=== PATIENT | female | born 1960 | race Caucasian/White ===

== ENCOUNTER → 2016-07-25 | Outpatient (CLI) | payer MEDICARE, OTHER ==
--- NOTE | 2016-07-26 11:12 | MM ---
Reason for exam: screening (asymptomatic). Last mammogram was performed 2 years and 1 month ago. History: Patient is postmenopausal. Took hormonal contraceptives beginning at age 23. Physical Findings: A clinical breast exam by your physician is recommended on an annual basis and results should be correlated with mammographic findings. MG Screening Mammo w CAD Bilateral CC and MLO view(s) were taken. Prior study comparison: July 04, 2014, bilateral MG screening mammo w CAD. January 09, 2013, bilateral digital screening mammo w/CAD. January 21, 2011, bilateral digital screening mammo w/CAD. There are scattered fibroglandular densities. No significant changes when compared with prior studies. ASSESSMENT: Benign, BI-RAD 2 RECOMMENDATION: Routine screening mammogram of both breasts in 1 year.
== END | disposition home or self-care (01) ==
LOC: RADMAMWWP 16:36
PROVIDERS: ATTEND Obstetrics & Gynecology
DX: Z12.31 Encounter for screening mammogram for malignant neoplasm of breast (principal)

== ENCOUNTER 2016-09-13 18:39 | Emergency (ER) | payer MEDICARE, OTHER ==
[2016-09-13] MEDS ORDERED: SODIUM CHLORIDE 0.9% 1,000 ML IV STA (19:07)
[2016-09-13] MEDS ORDERED: ONDANSETRON 4 MG/2 ML VIAL IVP STA (19:08)
--- NOTE | 2016-09-13 19:10 | ED ---
General Adult HPI - General Chief complaint: Nausea/Vomiting/Diarrhea Stated complaint: SOB, Vomiting Time Seen by Provider: 09/13/16 18:57 Source: patient, RN notes reviewed, old records reviewed Mode of arrival: ambulatory Limitations: no limitations - History of Present Illness Initial comments: 56-year-old female presents to the emergency Department chief complaint of an episode of shortness of breath and vomiting. 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 She states that she pulled over and got something to eat and drink. She reports that after she vomited. She states that she had a stress test done approximately month ago which was normal. She denies any specific chest pain or abdominal pain. She just reports that she feels somewhat "lightheaded and off" and still feels somewhat short of breath. She is a nonsmoker. Denies any history of blood clots or cardiac history. She reports that she has a surgical history including tubal legation, cholecystectomy, and orthopedic surgeries and varicose and surgeries. Patient also has a history of fibromyalgia. - Related Data Home Medications Medication Instructions Recorded Confirmed Biotin 5 mg PO DAILY 09/13/16 09/13/16 HYDROcodone/APAP 5-325MG [[place] 1 tab PO Q6HR PRN 09/13/16 09/13/16 5-325] Hydrochlorothiazide [Hydrodiuril] 25 mg PO BID 09/13/16 09/13/16 Ibuprofen [Motrin] 800 mg PO BID PRN 09/13/16 09/13/16 Latanoprost [Xalatan 0.005%] 1 drop BOTH EYES HS 09/13/16 09/13/16 Lisinopril [Zestril] 20 mg PO DAILY 09/13/16 09/13/16 Magnesium Oxide [Mag-Ox] 400 mg PO BID 09/13/16 09/13/16 Methocarbamol [Robaxin-750] 750 mg PO BID PRN 09/13/16 09/13/16 Multivit with Calcium,Iron,Min 1 tab PO DAILY 09/13/16 09/13/16 [Women's Multivitamin] Pregabalin [Lyrica] 75 mg PO TID PRN 09/13/16 09/13/16 traMADol HCL [Ultram] 50 mg PO BID PRN 09/13/16 09/13/16 Previous Rx's Medication Instructions Recorded Potassium Chloride ER [K-Dur 20] 20 meq PO DAILY #7 tab 12/31/13 Allergies Allergy/AdvReac Type Severity Reaction Status Date / Time codeine AdvReac Nausea & Verified 09/13/16 19:23 Vomiting Review of Systems ROS Statement: Those systems with pertinent positive or pertinent negative responses have been documented in the HPI. ROS Other: All systems not noted in ROS Statement are negative. Past Medical History Past Medical History: Hypertension, Rheumatoid Arthritis (RA) History of Any Multi-Drug Resistant Organisms: None Reported Past Surgical History: Cholecystectomy, Tubal Ligation Additional Past Surgical History / Comment(s): jaw, carpal tunnel release Past Psychological History: No Psychological Hx Reported Smoking Status: Never smoker Past Alcohol Use History: None Reported Past Drug Use History: None Reported General Exam - General Exam Comments Initial Comments: This is a well-appearing 48-year-old female. Patient is on appear to be in any acute distress. Limitations: no limitations General appearance: alert, in no apparent distress Head exam: Present: atraumatic, normocephalic, normal inspection Eye exam: Present: normal appearance, PERRL, EOMI. Absent: scleral icterus, conjunctival injection, periorbital swelling ENT exam: Present: normal exam, mucous membranes moist Neck exam: Present: normal inspection. Absent: tenderness, meningismus, lymphadenopathy Respiratory exam: Present: normal lung sounds bilaterally. Absent: respiratory distress, wheezes, rales, rhonchi, stridor Cardiovascular Exam: Present: regular rate, normal rhythm, normal heart sounds. Absent: systolic murmur, diastolic murmur, rubs, gallop, clicks GI/Abdominal exam: Present: soft, normal bowel sounds. Absent: distended, tenderness, guarding, rebound, rigid Extremities exam: Present: normal inspection, full ROM, normal capillary refill. Absent: tenderness, pedal edema, joint swelling, calf tenderness Back exam: Present: normal inspection Neurological exam: Present: alert, oriented X3, CN II-XII intact Psychiatric exam: Present: normal affect, normal mood Skin exam: Present: warm, dry, intact, normal color. Absent: rash Course Vital Signs 09/13/16 09/13/16 09/13/16 18:58 20:22 22:21 Temperature 98.4 F 98.1 F Pulse Rate 72 66 69 Respiratory 20 18 18 Rate Blood Pressure 147/74 115/62 125/71 O2 Sat by Pulse 98 95 99 Oximetry - Reevaluation(s) Reevaluation #1: 09/13/16 22:01 Patient is reevaluated reports that she is feeling better. Patient thinks she may just been dehydrated. EKG Findings - EKG Comments: EKG Findings:: EKG shows normal sinus rhythm. Ventricular rate of 72 bpm. LA interval 180 ms. QRS duration 106 ms. QT QTc is 48/446. No evidence of ST elevation or T-wave inversion. No evidence of atrial or ventricular arrhythmias. Medical Decision Making - Medical Decision Making 56-year-old female presents to the emergency Department chief complaint of an episode of shortness of breath and vomiting. 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 She states that she pulled over and got something to eat and drink. She reports that after she vomited. She states that she had a stress test done approximately month ago which was normal. She denies any specific chest pain or abdominal pain. She just reports that she feels somewhat "lightheaded and off" and still feels somewhat short of breath. She is a nonsmoker. CT of the chest was negative for any PE. Ultrasound of the liver showed normal liver was slightly enlarged. Patient labwork was reviewed, transaminitis evident, likely related to fatty liver disease. Patient is reevaluated states she does feel somewhat better. Discussed close follow-up with primary care friend. Patient agrees to treatment plan will comply. Return parameters were discussed. - Lab Data Result diagrams: 09/13/16 19:30 09/13/16 19:30 Lab Results 09/13/16 09/13/16 09/13/16 Range/Units 19:30 19:30 19:30 WBC 11.5 H (3.8-10.6) k/uL RBC 3.95 (3.80-5.40) m/uL Hgb 12.6 (11.4-16.0) gm/dL Hct 36.9 (34.0-46.0) % MCV 93.5 (80.0-100.0) fL MCH 32.0 (25.0-35.0) pg MCHC 34.2 (31.0-37.0) g/dL RDW 13.0 (11.5-15.5) % Plt Count 225 (150-450) k/uL Neutrophils % 88 % Lymphocytes % 8 % Monocytes % 3 % Eosinophils % 1 % Basophils % 0 % Neutrophils # 10.0 H (1.3-7.7) k/uL Lymphocytes # 0.9 L (1.0-4.8) k/uL Monocytes # 0.3 (0-1.0) k/uL Eosinophils # 0.1 (0-0.7) k/uL Basophils # 0.0 (0-0.2) k/uL PT (9.0-12.0) sec INR (<1.2) APTT (22.0-30.0) sec D-Dimer (<0.60) mg/L FEU Sodium 133 L (137-145) mmol/L Potassium 3.6 (3.5-5.1) mmol/L Chloride 95 L (98-107) mmol/L Carbon Dioxide 29 (22-30) mmol/L Anion Gap 9 mmol/L BUN 11 (7-17) mg/dL Creatinine 0.69 (0.52-1.04) mg/dL Est GFR (MDRD) Af Amer >60 (>60 ml/min/1.73 sqM) Est GFR (MDRD) Non-Af >60 (>60 ml/min/1.73 sqM) Glucose 129 H (74-99) mg/dL Calcium 8.7 (8.4-10.2) mg/dL Magnesium 1.7 (1.6-2.3) mg/dL Total Bilirubin 0.7 (0.2-1.3) mg/dL AST 390 H (14-36) U/L ALT 286 H (9-52) U/L Alkaline Phosphatase 144 H (38-126) U/L Total Creatine Kinase 69 (30-135) U/L CK-MB (CK-2) 0.4 (0.0-2.4) ng/mL CK-MB (CK-2) Rel Index 0.6 Troponin I <0.012 (0.000-0.034) ng/mL NT-Pro-B Natriuret Pep pg/mL Total Protein 6.6 (6.3-8.2) g/dL Albumin 4.1 (3.5-5.0) g/dL Amylase (30-110) U/L Lipase (23-300) U/L Hepatitis A IgM Ab Hep Bs Antigen Hep B Core IgM Ab Hep C IgG Ab (Negative) 09/13/16 09/13/16 09/13/16 Range/Units 19:30 19:30 19:30 WBC (3.8-10.6) k/uL RBC (3.80-5.40) m/uL Hgb (11.4-16.0) gm/dL Hct (34.0-46.0) % MCV (80.0-100.0) fL MCH (25.0-35.0) pg MCHC (31.0-37.0) g/dL RDW (11.5-15.5) % Plt Count (150-450) k/uL Neutrophils % % Lymphocytes % % Monocytes % % Eosinophils % % Basophils % % Neutrophils # (1.3-7.7) k/uL Lymphocytes # (1.0-4.8) k/uL Monocytes # (0-1.0) k/uL Eosinophils # (0-0.7) k/uL Basophils # (0-0.2) k/uL PT 10.0 (9.0-12.0) sec INR 1.0 (<1.2) APTT 23.2 (22.0-30.0) sec D-Dimer 1.05 H (<0.60) mg/L FEU Sodium (137-145) mmol/L Potassium (3.5-5.1) mmol/L Chloride (98-107) mmol/L Carbon Dioxide (22-30) mmol/L Anion Gap mmol/L BUN (7-17) mg/dL Creatinine (0.52-1.04) mg/dL Est GFR (MDRD) Af Amer (>60 ml/min/1.73 sqM) Est GFR (MDRD) Non-Af (>60 ml/min/1.73 sqM) Glucose (74-99) mg/dL Calcium (8.4-10.2) mg/dL Magnesium (1.6-2.3) mg/dL Total Bilirubin (0.2-1.3) mg/dL AST (14-36) U/L ALT (9-52) U/L Alkaline Phosphatase (38-126) U/L Total Creatine Kinase (30-135) U/L CK-MB (CK-2) (0.0-2.4) ng/mL CK-MB (CK-2) Rel Index Troponin I (0.000-0.034) ng/mL NT-Pro-B Natriuret Pep 92 pg/mL Total Protein (6.3-8.2) g/dL Albumin (3.5-5.0) g/dL Amylase 61 (30-110) U/L Lipase 298 (23-300) U/L Hepatitis A IgM Ab Hep Bs Antigen Hep B Core IgM Ab Hep C IgG Ab (Negative) 09/13/16 Range/Units 22:40 WBC (3.8-10.6) k/uL RBC (3.80-5.40) m/uL Hgb (11.4-16.0) gm/dL Hct (34.0-46.0) % MCV (80.0-100.0) fL MCH (25.0-35.0) pg MCHC (31.0-37.0) g/dL RDW (11.5-15.5) % Plt Count (150-450) k/uL Neutrophils % % Lymphocytes % % Monocytes % % Eosinophils % % Basophils % % Neutrophils # (1.3-7.7) k/uL Lymphocytes # (1.0-4.8) k/uL Monocytes # (0-1.0) k/uL Eosinophils # (0-0.7) k/uL Basophils # (0-0.2) k/uL PT (9.0-12.0) sec INR (<1.2) APTT (22.0-30.0) sec D-Dimer (<0.60) mg/L FEU Sodium (137-145) mmol/L Potassium (3.5-5.1) mmol/L Chloride (98-107) mmol/L Carbon Dioxide (22-30) mmol/L Anion Gap mmol/L BUN (7-17) mg/dL Creatinine (0.52-1.04) mg/dL Est GFR (MDRD) Af Amer (>60 ml/min/1.73 sqM) Est GFR (MDRD) Non-Af (>60 ml/min/1.73 sqM) Glucose (74-99) mg/dL Calcium (8.4-10.2) mg/dL Magnesium (1.6-2.3) mg/dL Total Bilirubin (0.2-1.3) mg/dL AST (14-36) U/L ALT (9-52) U/L Alkaline Phosphatase (38-126) U/L Total Creatine Kinase (30-135) U/L CK-MB (CK-2) (0.0-2.4) ng/mL CK-MB (CK-2) Rel Index Troponin I (0.000-0.034) ng/mL NT-Pro-B Natriuret Pep pg/mL Total Protein (6.3-8.2) g/dL Albumin (3.5-5.0) g/dL Amylase (30-110) U/L Lipase (23-300) U/L Hepatitis A IgM Ab NEGATIVE Hep Bs Antigen Negative Hep B Core IgM Ab NEGATIVE Hep C IgG Ab Negative (Negative) - Radiology Data Radiology results: report reviewed No evidence of PE. Scattered areas of subsegmental atelectasis and low lung volumes. Focal consolidation is not evident. US gallbladder shows mildly enlarged liver. No other abnormalities. Disposition Clinical Impression: Dehydration, Breath shortness, Vomiting Disposition: HOME SELF-CARE Condition: Good Instructions: Acute Nausea and Vomiting (ED) Additional Instructions: Patient advised to rest, remain hydrated. Follow-up with her primary care physician. Return to the emergency department if any alarming signs or symptoms occur. Referrals: Sergio Clements MD [Primary Care Provider] - 1-2 days Time of Disposition: 22:02
[2016-09-13 19:47] LABS: Basophils % (A) 0 %; CH 32.1; CHCM 34.4; Eosinophils # (A) 0.1 k/uL (0-0.7); Eosinophils % (A) 1 %; HCT 36.9 % (34.0-46.0); HGB 12.6 gm/dL (11.4-16.0); Luc # (Auto) 0.13; Luc % (Auto) 1; Lymphocytes # (A) 0.9 k/uL (1.0-4.8); Lymphocytes % (A) 8 %; MCHC 34.2 g/dL (31.0-37.0); MCV 93.5 fL (80.0-100.0); Mean Platelet Volume 8.3; Monocytes # (A) 0.3 k/uL (0-1.0); Monocytes % (A) 3 %; Neutrophils % (A) 88 %; RBC 3.95 m/uL (3.80-5.40); WBC 11.5 k/uL (3.8-10.6); WBC (Perox) 11.84
--- NOTE | 2016-09-13 19:48 | XR ---
EXAMINATION TYPE: XR chest 2V DATE OF EXAM: 09/13/2016 COMPARISON: NONE HISTORY: Nausea, vomiting, and shortness of breath. Stress test one month ago with no abnormalities. TECHNIQUE: Frontal and lateral views of the chest are obtained. FINDINGS: There is no focal air space opacity, pleural effusion, or pneumothorax seen. The cardiac silhouette size is within normal limits. The osseous structures are intact. IMPRESSION: No acute cardiopulmonary process.
[2016-09-13 19:58] LABS: ALT 286 U/L (9-52); AST 390 U/L (14-36); Alkaline Phosphatase 144 U/L (38-126); Anion Gap 9 mmol/L; Blood Urea Nitrogen 11 mg/dL (7-17); Calcium 8.7 mg/dL (8.4-10.2); Carbon Dioxide 29 mmol/L (22-30); Chloride 95 mmol/L (98-107); Glucose 129 mg/dL (74-99); Magnesium 1.7 mg/dL (1.6-2.3); Non-African American GFR(MDRD) >60 (>60 ml/min/1.73 sqM); Potassium 3.6 mmol/L (3.5-5.1); Sodium 133 mmol/L (137-145); Total Bilirubin 0.7 mg/dL (0.2-1.3); Total Protein 6.6 g/dL (6.3-8.2)
[2016-09-13 20:09] LABS: Creatine Kinase 69 U/L (30-135)
[2016-09-13 20:17] LABS: Partial Thromboplastin Time 23.2 sec (22.0-30.0)
[2016-09-13 20:21] LABS: Creatine Kinase MB 0.4 ng/mL (0.0-2.4); Troponin I <0.012 ng/mL (0.000-0.034)
[2016-09-13 20:23] VITALS: RESP 18
[2016-09-13 20:25] LABS: Amylase 61 U/L (30-110)
[2016-09-13] MEDS ORDERED: RX INFO: IV CONTRAST WAS GIVEN 1 EACH MISC MISCELLANE PRN (20:28)
[2016-09-13] MEDS ORDERED: SODIUM CHLORIDE 0.9% 1,000 ML IV ONE (20:30)
[2016-09-13] MEDS ORDERED: SODIUM CHLORIDE 0.9% 1,000 ML IV SCH (20:30)
--- NOTE | 2016-09-13 21:15 | CT ---
EXAMINATION TYPE: CT chest angio for PE DATE OF EXAM: 09/13/2016 COMPARISON: NONE HISTORY: Shortness of breath CT DLP: 615 mGycm. Automated Exposure Control for Dose Reduction was Utilized. CONTRAST: CTA scan of the thorax is performed with IV Contrast, patient injected with 100 mL of Omnipaque 300, pulmonary embolism protocol. MIP Images are created on CT scanner and reviewed. FINDINGS: LUNGS: There are low lung volumes with scattered areas of subsegmental atelectasis. The lungs are manny ssly clear, there is no concerning parenchymal mass or nodule identified. There is no pleural effus ion or pneumothorax seen. The tracheobronchial tree is patent. MEDIASTINUM: There is satisfactory enhancement of the pulmonary artery and its branches, there is no CT evidence for pulmonary embolism. There are no greater than 1 cm hilar or mediastinal lymph nodes. No cardiomegaly or pericardial effusion is seen. OTHER: Small gastroesophageal hiatal hernia is noted. IMPRESSION: 1. No evidence of pulmonary embolus. 2. Scattered areas of subsegmental atelectasis and low lung volumes. No focal consolidation.
--- NOTE | 2016-09-13 21:50 | US ---
EXAMINATION TYPE: US gallbladder DATE OF EXAM: 09/13/2016 COMPARISON: NONE CLINICAL HISTORY: Pain. Nausea and vomiting EXAM MEASUREMENTS: Liver Length: 18.9 cm Gallbladder Wall: Surgically absent cm CBD: 0.58 cm Right Kidney: 9.7 x 4.1 x 4.4 cm Pancreas: Tail obscured by overlying bowel gas Liver: Increased attenuation CBD: wnl Right Kidney: No hydronephrosis or masses seen IMPRESSION: Surgical absence of the gallbladder, otherwise unremarkable exam.
[2016-09-13 22:22] VITALS: BP 125/71; PULSE 69; TEMP 98.1
[2016-09-13 23:28] LABS: Hepatitis B Surface Ag Index 0.06
[2016-09-13 23:33] LABS: Hepatitis B Core IgM Index 0.01
[2016-09-13 23:45] LABS: Hepatitis C Virus IgG Ab Negative (Negative); Hepatitis C Virus IgG Index 0.03
== END 2016-09-13 22:21 | disposition home or self-care (01) ==
LOC: EC 18:39
DX: E86.0 Dehydration (principal); R06.02 Shortness of breath; I10 Essential (primary) hypertension; Z79.899 Other long term (current) drug therapy; Z88.5 Allergy status to narcotic agent
CPT/HCPCS: 36415; 93005; 85379; 83880; 80053; 80074; 82150; 82550; 82553; 83690; 83735; 84484; 85025; 85610; 85730; 71020; 76705; 71275; 99285; 96374; 96361; J2405; Q9967

== ENCOUNTER 2016-10-09 11:23 | Emergency (ER) | payer MEDICARE, OTHER ==
[2016-10-09] MEDS ORDERED: TOPICAL SKIN ADHESIVE 1 EACH AMP TOPICAL ONE (11:38)
--- NOTE | 2016-10-09 12:24 | ED ---
General Adult HPI - General Chief complaint: Wound/Laceration Stated complaint: LEFT HAND LACERATION Time Seen by Provider: 10/09/16 11:32 Source: patient, RN notes reviewed Mode of arrival: ambulatory Limitations: no limitations - History of Present Illness Initial comments: Patient 56-year-old female who presents emergency room today with a chief complaint of a laceration between the webspace of the third and fourth digits. Patient states that she had a piece of glass that broke causing this laceration. She denies any other complaints or associated symptoms. She states tetanus is up-to-date. Denies any other symptoms. She has full range of motion. Patient denies any recent fever, chills, shortness of breath, chest pain, back pain, abdominal pain, nausea or vomiting, numbness or tingling, dysuria or hematuria, constipation or diarrhea, headaches or visual changes, or any other complaints. - Related Data Home Medications Medication Instructions Recorded Confirmed Biotin 5 mg PO DAILY 09/13/16 09/13/16 HYDROcodone/APAP 5-325MG [[place] 1 tab PO Q6HR PRN 09/13/16 09/13/16 5-325] Hydrochlorothiazide [Hydrodiuril] 25 mg PO BID 09/13/16 09/13/16 Ibuprofen [Motrin] 800 mg PO BID PRN 09/13/16 09/13/16 Latanoprost [Xalatan 0.005%] 1 drop BOTH EYES HS 09/13/16 09/13/16 Lisinopril [Zestril] 20 mg PO DAILY 09/13/16 09/13/16 Magnesium Oxide [Mag-Ox] 400 mg PO BID 09/13/16 09/13/16 Methocarbamol [Robaxin-750] 750 mg PO BID PRN 09/13/16 09/13/16 Multivit with Calcium,Iron,Min 1 tab PO DAILY 09/13/16 09/13/16 [Women's Multivitamin] Pregabalin [Lyrica] 75 mg PO TID PRN 09/13/16 09/13/16 traMADol HCL [Ultram] 50 mg PO BID PRN 09/13/16 09/13/16 Previous Rx's Medication Instructions Recorded Potassium Chloride ER [K-Dur 20] 20 meq PO DAILY #7 tab 12/31/13 Cephalexin [Keflex] 500 mg PO Q12HR 5 Days 10/09/16 Allergies Allergy/AdvReac Type Severity Reaction Status Date / Time codeine AdvReac Nausea & Verified 10/09/16 11:33 Vomiting Review of Systems ROS Statement: Those systems with pertinent positive or pertinent negative responses have been documented in the HPI. ROS Other: All systems not noted in ROS Statement are negative. Past Medical History Past Medical History: Hypertension, Rheumatoid Arthritis (RA) History of Any Multi-Drug Resistant Organisms: None Reported Past Surgical History: Cholecystectomy, Tubal Ligation Additional Past Surgical History / Comment(s): jaw, carpal tunnel release Past Psychological History: No Psychological Hx Reported Smoking Status: Never smoker Past Alcohol Use History: None Reported Past Drug Use History: None Reported General Exam - General Exam Comments Initial Comments: General: The patient is awake and alert, in no distress, and does not appear acutely ill. Neck: The neck is supple, there is no tenderness or JVD. Cardiovascular: There is a regular rate and rhythm. No murmur, rub or gallop is appreciated. Respiratory: Lungs are clear to auscultation, respirations are non-labored, breath sounds are equal. No wheezes, stridor, rales, or rhonchi. Musculoskeletal: Full range of motion. Sensation intact. Pulses equal bilaterally 2+. Strength 5/5. Neurological: A&O x 3. CN II-XII intact, There are no obvious motor or sensory deficits. Coordination appears grossly intact. Speech is normal. Skin: 1 cm linear laceration running vertically in the webspace between the third and fourth digit. No active bleeding. Psychiatric: Normal mood and affect. Limitations: no limitations Course Vital Signs 10/09/16 11:28 Temperature 98.2 F Pulse Rate 68 Respiratory 20 Rate Blood Pressure 121/78 O2 Sat by Pulse 97 Oximetry Procedures - Procedures Initial comment: Laceration site cleaned here the emergency room by saline. Wound edges were approximated and closed with Dermabond. Patient tolerated well. Medical Decision Making - Medical Decision Making Patient will be given short prescription of Keflex and due to puncture wound. Advised watch for any signs of infection. Disposition Clinical Impression: Laceration Disposition: HOME SELF-CARE Condition: Good Instructions: Laceration (ED) Additional Instructions: Please allow the glue to fall off on its own over the next 3-5 days. Please watch for any signs of infection which may include increased pain, Redness, Fever or Chills. Please Return to Emergency Room for Any Signs of Infection or Any Other Concerns. Prescriptions: Cephalexin [Keflex] 500 mg PO Q12HR 5 Days Referrals: Sergio Clements MD [Primary Care Provider] - 1-2 days Time of Disposition: 12:22
[2016-10-09 12:33] VITALS: BP 115/73; PULSE 65; RESP 16; TEMP 98
== END 2016-10-09 12:43 | disposition home or self-care (01) ==
LOC: EC 11:23
DX: S61.412A Laceration without foreign body of left hand, initial encounter (principal); I10 Essential (primary) hypertension; M06.9 Rheumatoid arthritis, unspecified; Z79.899 Other long term (current) drug therapy; Z88.5 Allergy status to narcotic agent; W25.XXXA Contact with sharp glass, initial encounter; Y93.89 Activity, other specified
CPT/HCPCS: 12001; 99282

== ENCOUNTER 2017-02-15 21:53 | Emergency (ER) | payer MEDICARE, OTHER ==
[2017-02-15 22:04] VITALS: BP 121/78; PULSE 57; RESP 17; TEMP 98.3
[2017-02-15] MEDS ORDERED: CEPHALEXIN 500MG STARTER PACK 4 CAP BTL PO STA (22:18)
--- NOTE | 2017-02-15 22:19 | ED ---
General Adult HPI - General Chief complaint: Skin/Abscess/Foreign Body Stated complaint: cracked/sore feet Time Seen by Provider: 02/15/17 22:08 Source: patient, RN notes reviewed Mode of arrival: ambulatory Limitations: no limitations - History of Present Illness Initial comments: Patient 56-year-old female who presents emergency room today with a chief complaint of possible infection to the right lower extremity. Patient does admit that she has a cracked skin to the right heel. She states that he tries out. States that she noticed some increased burning today. Look at the right leg no skin swelling and redness streaking up. Patient denies any other complaints or symptoms. Patient denies any recent fever, chills, shortness of breath, chest pain, back pain, abdominal pain, nausea or vomiting, numbness or tingling, dysuria or hematuria, constipation or diarrhea, headaches or visual changes, or any other complaints. - Related Data Home Medications Medication Instructions Recorded Confirmed Biotin 5 mg PO DAILY 09/13/16 09/13/16 HYDROcodone/APAP 5-325MG [[place] 1 tab PO Q6HR PRN 09/13/16 09/13/16 5-325] Hydrochlorothiazide [Hydrodiuril] 25 mg PO BID 09/13/16 09/13/16 Ibuprofen [Motrin] 800 mg PO BID PRN 09/13/16 09/13/16 Latanoprost [Xalatan 0.005%] 1 drop BOTH EYES HS 09/13/16 09/13/16 Lisinopril [Zestril] 20 mg PO DAILY 09/13/16 09/13/16 Magnesium Oxide [Mag-Ox] 400 mg PO BID 09/13/16 09/13/16 Methocarbamol [Robaxin-750] 750 mg PO BID PRN 09/13/16 09/13/16 Multivit with Calcium,Iron,Min 1 tab PO DAILY 09/13/16 09/13/16 [Women's Multivitamin] Pregabalin [Lyrica] 75 mg PO TID PRN 09/13/16 09/13/16 traMADol HCL [Ultram] 50 mg PO BID PRN 09/13/16 09/13/16 Previous Rx's Medication Instructions Recorded Potassium Chloride ER [K-Dur 20] 20 meq PO DAILY #7 tab 11/25/14 Cephalexin [Keflex] 500 mg PO Q12HR 5 Days cap 10/09/16 Cephalexin [Keflex] 500 mg PO Q12HR 10 Days cap 02/15/17 Allergies Allergy/AdvReac Type Severity Reaction Status Date / Time codeine AdvReac Nausea & Verified 02/15/17 22:01 Vomiting Review of Systems ROS Statement: Those systems with pertinent positive or pertinent negative responses have been documented in the HPI. ROS Other: All systems not noted in ROS Statement are negative. Past Medical History Past Medical History: Hypertension, Rheumatoid Arthritis (RA) History of Any Multi-Drug Resistant Organisms: None Reported Past Surgical History: Cholecystectomy, Tubal Ligation Additional Past Surgical History / Comment(s): jaw, carpal tunnel release Past Psychological History: No Psychological Hx Reported Smoking Status: Never smoker Past Alcohol Use History: None Reported Past Drug Use History: None Reported General Exam - General Exam Comments Initial Comments: General: The patient is awake and alert, in no distress, and does not appear acutely ill. Neck: The neck is supple, there is no tenderness or JVD. Cardiovascular: There is a regular rate and rhythm. No murmur, rub or gallop is appreciated. Respiratory: Lungs are clear to auscultation, respirations are non-labored, breath sounds are equal. No wheezes, stridor, rales, or rhonchi. Musculoskeletal: Full range motion. Sensation intact. Pulses equal bilaterally 2+. Strength 5/5. Neurological: A&O x 3. CN II-XII intact, There are no obvious motor or sensory deficits. Coordination appears grossly intact. Speech is normal. Skin: Patient does have cracked skin to the back of the right heel. There is redness and warmth to this area with lymphangitic streaking up the right leg approximate half way up the [place]o. Psychiatric: Normal mood and affect. Limitations: no limitations Course Vital Signs 02/15/17 22:01 Temperature 98.3 F Pulse Rate 57 L Respiratory 17 Rate Blood Pressure 121/78 O2 Sat by Pulse 98 Oximetry Medical Decision Making - Medical Decision Making Signs and symptoms and reasons for return and possible admission for IV antibiotics were discussed with the patient in detail. She'll be started on antibiotics of Keflex given starter pack at this time discharged home with prescription. Advised close follow-up Disposition Clinical Impression: Cellulitis Disposition: HOME SELF-CARE Condition: Good Instructions: Cellulitis (ED) Additional Instructions: Please use medication as discussed. Please follow-up with family doctor in the next 2 days of symptoms have not improved. Please return to emergency room if the symptoms increase or worsen or for any other concerns. Prescriptions: Cephalexin [Keflex] 500 mg PO Q12HR 10 Days cap Referrals: Sergio Clements MD [Primary Care Provider] - 1-2 days Time of Disposition: 22:18
== END 2017-02-15 22:26 | disposition home or self-care (01) ==
LOC: EC 21:53
DX: L03.115 Cellulitis of right lower limb (principal); I10 Essential (primary) hypertension; Z79.899 Other long term (current) drug therapy; Z88.5 Allergy status to narcotic agent
CPT/HCPCS: 99282

== ENCOUNTER → 2018-09-28 | Outpatient (CLI) | payer MEDICARE, OTHER ==
--- NOTE | 2018-09-30 07:45 | MR ---
EXAMINATION TYPE: MR brain wo con DATE OF EXAM: 09/28/2018 COMPARISON: CT brain May 09, 2010. HISTORY: New onset headaches TECHNIQUE: Multiplanar, multisequence imaging of the brain and brainstem is performed without IV cont rast. FINDINGS: Diffusion weighted images demonstrate no evidence of a recent infarct or other diffusion abnormality. There is no worrisome extraaxial fluid collection. There is mild ventricular and sulcal prominence. T here are some scattered foci of T2 hyperintensity seen throughout the white matter bilaterally. These lesions are nonspecific in appearance and distribution. Approximately 15-20 scattered small lesions are seen. Midline structures demonstrate normal morphology. The craniocervical junction appears within normal limits. Normal vascular flow voids are present. The visualized sinuses are clear and the globes are i ntact. IMPRESSION: There is mild diffuse cerebral atrophy and chronic small vessel ischemic change.
== END | disposition home or self-care (01) ==
LOC: RADMRIMAIN 21:12
PROVIDERS: ATTEND Internal Medicine
DX: G31.9 Degenerative disease of nervous system, unspecified (principal); I67.82 Cerebral ischemia
CPT/HCPCS: 70551